=== PATIENT | female | born 1950 | race Two or more races ===

== ENCOUNTER 2024-08-28 15:52 | Emergency (ER) | payer MEDICARE, MEDICAID, SELFPAY ==
[2024-08-28 16:29] VITALS: BP 109/67; PULSE 92; RESP 17; TEMP 36.9; O2SAT 97
--- NOTE | 2024-08-28 16:37 | XR_ITS ---
Examination: PA lateral chest 2 views Technique: Upright PA lateral chest 2 views Exam date and time: August 28, 2024 1702 hrs. Indications: Coughing SOB today Findings: Comparison March 30, 2024 Moderate hyperexpansion Mild accentuation basilar bronchovascular markings Mild prominence left ventricle Scarring in the lingular segment Increased AP dimension chest on the lateral view No pneumonia or pulmonary edema Kyphosis dorsal spine with significant osteopenia Impression: COPD Mild basilar bronchitis
--- NOTE | 2024-08-28 16:38 | PD.EDRME ---
Rapid Medical Screening Exam [facility] Arrival date/time: 08/28/24 15:52 74-year-old female presents emergency department complaining of cough, runny nose, generalized bodyaches, headache, and fever for over 1 week. Patient reports has similar symptoms. Chief Complaint: Flu Like Symptoms Vital signs: Vital Signs Temperature 98.5 F 08/28/24 16:29 Pulse Rate 92 08/28/24 16:29 Respiratory Rate 17 08/28/24 16:29 Blood Pressure 109/67 08/28/24 16:29 Pulse Oximetry (%) 97 08/28/24 16:29 Oxygen Delivery Method Room Air 08/28/24 16:29 Vital signs reviewed by provider: Yes
--- NOTE | 2024-08-28 17:25 | PD.EDURI ---
Upper Respiratory Inf. RME/HPI General Chief Complaint: Flu Like Symptoms Stated Complaint: FEVER, COUGH, CONGESTION Time Seen by Provider: 08/28/24 16:38 Source: patient Arrival date/time: 08/28/24 15:52 74-year-old female presents emergency department complaining of cough, runny nose, generalized bodyaches, headache, and fever for over 1 week. Patient reports has similar symptoms. Mode of arrival: ambulatory Limitations: no limitations RME / HPI RME / HPI Narrative: 08/28/24 15:52 74-year-old female presents emergency department complaining of cough, runny nose, generalized bodyaches, headache, and fever for over 1 week. Patient reports has similar symptoms. Related Data Home Medications ?Medication ?Instructions ?Recorded ?Confirmed Levothyroxine * (SYNTHROID *) 100 mcg PO QDAY #0 tabs 05/06/17 03/11/22 Losartan Potassium * (COZAAR *) 50 mg PO QDAY #0 tabs 05/06/17 03/11/22 ferrous sulfate 325 mg (65 mg 325 mg PO BIDWM #0 tabs 05/06/17 03/11/22 iron) tablet (Feosol) hydroxychloroquine 200 mg tablet 200 mg PO DAILY #0 tabs 05/06/17 03/11/22 (Plaquenil) simvastatin 20 mg tablet (Zocor) 20 mg PO HS #0 tabs 05/06/17 03/11/22 aspirin 81 mg tablet,delayed 81 mg PO QDAY 03/10/22 03/10/22 release cholecalciferol (vitamin D3) 50 2,000 unit PO QDAY 03/10/22 03/11/22 mcg (2,000 unit) tablet (Vitamin D3) loratadine 10 mg tablet 10 mg PO QDAY 03/10/22 03/10/22 mycophenolate mofetil 500 mg tablet 500 mg PO BID 03/11/22 03/11/22 Previous Rx's ?Medication ?Instructions ?Recorded doxycycline hyclate 100 mg capsule 100 mg PO BID #14 caps 07/14/22 albuterol sulfate 90 mcg/actuation 2 puff inhalation QID PRN 08/16/22 aerosol inhaler shortness of breath or wheezing #8.5 grams azithromycin 250 mg tablet See Rx Instructions PO .COMPLEX #6 09/09/22 tabs albuterol sulfate 90 mcg/actuation 2 puff inhalation QID PRN 12/05/22 aerosol inhaler shortness of breath or wheezing #8.5 grams ciprofloxacin HCl 500 mg tablet 500 mg PO BID #14 tabs 03/30/24 (Cipro) ibuprofen 800 mg tablet 800 mg PO TID PRN pain #30 tabs 03/30/24 ibuprofen 600 mg tablet 600 mg PO Q8H PRN pain #20 tabs 08/28/24 Allergies Allergy/AdvReac Type Severity Reaction Status Date / Time Sulfa (Sulfonamide Allergy Intermediate RASH, HIVES Verified 03/30/24 11:48 Antibiotics) Review of Systems Review of Systems Systems Reviewed: All systems reviewed, normal except as documented Constitutional Constitutional: Reports system reviewed and no additional complaints, except as documented, Reports body ache(s), Denies chills, Reports fever(s) and Reports headache(s) Eyes Eyes: Reports system reviewed and no additional complaints, except as documented and Denies change in vision ENT Ears, Nose, Mouth, and Throat: Reports system reviewed and no additional complaints, except as documented, Denies disequilibrium, Denies dizziness, Reports headache(s), Reports nasal congestion, Denies sore throat and Denies vertigo Cardiovascular Cardiovascular: Reports system reviewed and no additional complaints, except as documented, Denies chest pain and Denies dyspnea Respiratory Respiratory: Reports system reviewed and no additional complaints, except as documented, Denies chest congestion, Reports cough and Denies dyspnea Gastrointestinal Gastrointestinal: Reports system reviewed and no additional complaints, except as documented, Denies abdominal pain, Denies nausea and Denies vomiting Musculoskeletal Musculoskeletal: Reports system reviewed and no additional complaints, except as documented, Denies abnormal gait and Denies arthralgias Integumentary/Breasts Skin/Breast: Reports system reviewed and no additional complaints, except as documented, Denies erythema, Denies rash and Denies wounds Neurologic Neurologic: Reports system reviewed and no additional complaints, except as documented, Denies abnormal gait, Denies disequilibrium, Denies dizziness, Reports headache(s) and Denies vertigo ED Exam General Limitations: Present no limitations General appearance: Present alert and in no apparent distress Head Head exam: Present atraumatic Eye Eye exam: Present normal appearance, PERRL and EOMI ENT ENT exam: Present normal exam, normal oropharynx and mucous membranes moist Neck Neck exam: Present normal inspection, full ROM and trachea midline Chest Chest inspection: Present normal inspection and symmetric chest wall rise Respiratory Respiratory exam: Present normal lung sounds bilaterally Cardiovascular Cardiovascular exam: Present regular rate, normal rhythm and normal heart sounds Abdominal Exam Abdominal exam: Present soft and normal bowel sounds Extremities Exam Extremities exam: Present normal inspection and full ROM Back Exam Back exam: Present normal inspection and full ROM Neurological Exam Neurological exam: Present alert, oriented X3 and CN II-XII intact Psychiatric Psychiatric exam: Present normal affect and normal mood Skin Skin exam: Present warm, dry, intact and normal color Course Quality Measures none Orders Category Date Time Status Bedside COVID-19 Antigen Test NOW Care 08/28/24 16:37 Completed Bedside Influenza A&B Antigen Test NOW Care 08/28/24 16:37 Completed XR chest 2V Stat Exams 08/28/24 16:37 Completed Vital Signs Vital signs: Vital Signs Temperature 98.5 F 08/28/24 16:29 Pulse Rate 92 08/28/24 16:29 Respiratory Rate 17 08/28/24 16:29 Blood Pressure 109/67 08/28/24 16:29 Pulse Oximetry (%) 97 08/28/24 16:29 Oxygen Delivery Method Room Air 08/28/24 16:29 97% RA WNL. Upper Respiratory Infection MDM Narrative MDM Narrative:: 74-year-old female presents emergency department complaining of cough, runny nose, generalized bodyaches, headache, and fever for over 1 week. Patient reports has similar symptoms. Patient no adventitious lung sounds on auscultation. Patient appears non toxic and hemodynamically stable. Chest XR negative for pneumonia but bronchitis pattern. Patient 97% RA with no tachypnea speaking in full sentences. COVID and Influenza negative. Likely viral infection. Instructed follow up with primary doctor and return ER for any worsening symptoms. Patient data External records reviewed:: [facility] previous records Clinical information provided by:: patient Social determinants that could affect healthcare access:: none Patient has the following chronic illnesses:: see chart How is presenting disease/condition affected by chronic disease/condition?: uneffected by Evaluation data The following diagnostics were reviewed and interpreted by me:: lab results and radiology exam(s) Lab and/or radiology exams considered but not ordered:: ordered Interpretation Summary: interpreted by me Medications / Prescriptions Medications or Prescriptions considered but not ordered:: n/a Medication administrations:: n/a Consultations Consultation(s) initiated? (list below): No Diagnosis Upper Respiratory Differential Diagnosis: upper respiratory infection, viral infection and bronchitis Most likely diagnosis given after review of the tests above:: bronchitis Admission Indicated Admission indicated?: not indicated Admission Request Was there a request for admission?: No Disposition Plan Disposition Plan: Discharge Discharge Attestation Discharge Attestation: The patient and all family members were given an opportunity to ask questions and understood the discharge instructions. Discharge instructions specifically effects, indications for sooner follow up or return to the emergency department, and the expected course of current diagnosis. Patient condition: Stable Discharge Plan Plan Patient Disposition: HOME (Self Care) Disposition Comment: Stable Prescriptions/Referrals Prescriptions/Med Rec: New ibuprofen 600 mg tablet 600 mg PO Q8H PRN (Reason: pain) Qty: 20 0RF No Action simvastatin [Zocor] 20 MG tablet 20 mg PO HS Qty: 0 ferrous sulfate [Feosol] 1 TAB tablet 325 mg PO BIDWM Qty: 0 hydroxychloroquine [Plaquenil] 200 MG tablet 200 mg PO DAILY Qty: 0 Levothyroxine * (SYNTHROID *) 100 mcg tablet 100 mcg PO QDAY Qty: 0 Losartan Potassium * (COZAAR *) 50 MG tablet 50 mg PO QDAY Qty: 0 aspirin 81 mg Tablet,Delayed Release (Dr/Ec) 81 mg PO QDAY loratadine 10 mg Tablet 10 mg PO QDAY cholecalciferol (vitamin D3) [Vitamin D3] 50 mcg (2,000 unit) Tablet 2,000 unit PO QDAY mycophenolate mofetil 500 mg Tablet 500 mg PO BID azithromycin 250 mg tablet See Rx Instructions .ROUTE .COMPLEX Qty: 6 0RF Rx Instructions: For 250 mg dose pack: take 500 mg today (day 1), then 250 mg for 4 days (days 2-5) ciprofloxacin HCl [Cipro] 500 mg tablet 500 mg PO BID Qty: 14 0RF ibuprofen 800 mg tablet 800 mg PO TID PRN (Reason: pain) Qty: 30 0RF doxycycline hyclate 100 mg capsule 100 mg PO BID Qty: 14 0RF albuterol sulfate 90 mcg/actuation HFA aerosol inhaler 2 puff inhalation QID PRN (Reason: shortness of breath or wheezing) Qty: 8.5 0RF albuterol sulfate 90 mcg/actuation HFA aerosol inhaler 2 puff inhalation QID PRN (Reason: shortness of breath or wheezing) Qty: 8.5 0RF Referrals: Domingo Tomlinson MD [Primary Care Provider] - In 1 week Problem List Clinical Impression: Bronchitis Patient/Caregiver Discharge Instructions Discharge Activity: activity as tolerated Education Materials: ED Bronchitis, No Antibiotic (Adult) Additional Instructions: Drink plenty of fluids and stay hydrated. Take ibuprofen or Tylenol as needed for pain. Follow-up with primary care provider in 24 to 40 hours. Return to emergency department for any worsening symptoms or as needed. Print Language: Icelandic Stand Alone Forms: [employer] Award Info., Patient Portal Info Letter PA/COMMERCIAL BAKER HELPER Supervising Physician PA/COMMERCIAL BAKER HELPER Supervising Physician: Dr. Martinez
== END 2024-08-28 17:30 | disposition home or self-care (01) ==
PROVIDERS: Emergency Provider Emergency Medicine; PCP Family Medicine
DX: J40 Bronchitis, not specified as acute or chronic (principal)
CPT/HCPCS: 71046; 87400; 87811; 99283

== ENCOUNTER 2024-10-08 09:07 | Emergency (ER) | payer MEDICARE, MEDICAID, SELFPAY ==
[2024-10-08 09:17] VITALS: BP 125/78; PULSE 72; RESP 17; TEMP 36.5; O2SAT 98; BMI 27.1
--- NOTE | 2024-10-08 09:33 | XR_ITS ---
Examination: CT thoracic spine, without contrast. 2-D sagittal reconstructions. 2-D coronal reconstructions. 3-D reconstructions. Date and time of exam:10/08/2024 at 0957 hrs. Indications: Left upper back pain beginning 2 days ago CTDI: vol (mGy):18 DLP: (mGycm):593 Technique: Multiple 1.25 mm axial sections of the thoracic spine without intravenous contrast have been obtained. 2-D sagittal and coronal reconstructions have been obtained. 3-D reconstructions have been obtained. Low dose protocols were performed. One or more of the following dose reduction techniques were used; automated exposure control, adjustment of the mA and/or KV according to patient size, use of iterative reconstruction technique. Findings: Prominent osteopenia Kyphosis dorsal spine, mild Mild to moderate compression fracture T7 which appears subacute The pedicles at this level are intact No focal soft tissue disc protrusion Impression: Prominent osteopenia Mild to moderate compression fracture T7 which appears subacute, MRI thoracic spine without contrast follow-up would best assess for marrow edema involving this vertebral body and assess for soft tissue acquired spinal stenosis
--- NOTE | 2024-10-08 09:33 | XR_ITS ---
Examination: CT cervical spine without contrast 2-D sagittal reconstructions 2-D coronal reconstructions 3-D reconstructions. Exam date and time:October 08, 2024 0953 hrs. Indications: Left neck pain beginning 2 days ago CTDI:vol (mGy) 7.82 DLP: (mGycm) 167 Technique: Multiple 2 mm axial sections of the cervical spine have been obtained. The coronal and sagittal reconstructions have been obtained. 3-D reconstructions have been obtained. Low dose protocols were performed. One or more of the following dose reduction techniques were used; automated exposure control, adjustment of the mA and/or KV according to patient size, use of iterative reconstruction technique. Findings: Axial sections demonstrate intact base of the skull. Minimal anterolisthesis C5 on C6 Mild disc narrowing C6-C7 C1 exhibit satisfactory relationship to the odontoid. No acute cervical vertebral body fracture seen. Alignment posterior spinous processes satisfactory. Impression: No acute cervical fracture. Early degenerative disc disease C6-C7 Consider MRI cervical spine without contrast follow-up to best assess for acquired soft tissue spinal stenosis
--- NOTE | 2024-10-08 09:33 | XR_ITS ---
Examination: CT brain head without contrast. 2-D sagittal coronal reconstructions Date and time of exam:October 08, 2024 at 0935 hrs. Indications: Onset left-sided headaches beginning 2 days ago CTDI: vol (mGy):49 DLP: (mGycm):1017 Technique: Multiple CT axial sections of the brain have been obtained, 5 mm slice thickness. Contrast has not been administered. 2-D sagittal, coronal reconstructions have been obtained Low dose protocols were performed. One or more of the following dose reduction techniques were used; automated exposure control, adjustment of the mA and/or KV according to patient size, use of iterative reconstruction technique. Findings: No significant ventricular enlargement. Intra-axial or extra-axial hemorrhage density is not seen. No mass effect or midline shift Basal cisterns are not remarkable. Fourth ventricle is midline. Cranial vault intact. Impression: Negative for acute hemorrhage, mass effect or midline shift Advise clinical correlation and follow-up accordingly
--- NOTE | 2024-10-08 09:34 | PD.EDRME ---
Rapid Medical Screening Exam [facility]ME Arrival date/time: 10/08/24 09:07 74-year-old female presents emergency department complaints of head pain, neck pain, back pain worse with movement patient also reports some dizziness Chief Complaint: Neck Pain/Injury Time Seen by Provider: 10/08/24 09:18 Vital signs: Vital Signs Temperature 97.7 F 10/08/24 09:17 Pulse Rate 72 10/08/24 09:17 Respiratory Rate 17 10/08/24 09:17 Blood Pressure 125/78 10/08/24 09:17 Pulse Oximetry (%) 98 10/08/24 09:17 Oxygen Delivery Method Room Air 10/08/24 09:17
[2024-10-08 10:52] LABS: Collection Type, Urine Clean Catch
[2024-10-08 11:03] LABS: Basophils % (Auto) 0 % (0-2.5); Eosinophils # (Auto) 0.1 Thou/mm3 (0.0-0.5); Eosinophils % (Auto) 1 % (0-10); Hematocrit 36.8 % (36.0-46.0); Hemoglobin 11.6 g/dL (12.0-16.0); Immature Granulocytes % (Auto) 0 % (0-0); Immature Granulocytes Auto 0.01 Thou/mm3 (0.00-0.00); Lymphocytes % (Auto) 11 % (10-50); Mean Corpuscular HGB Conc 31.5 g/dl (31.0-37.0); Mean Corpuscular Hemoglobin 26.8 pg (25.0-35.0); Mean Corpuscular Volume 85 fL (80-100); Monocytes # (Auto) 0.5 Thou/mm3 (0.0-0.8); Monocytes % (Auto) 6 % (0-12); Neutrophils # (Auto) 7.8 Thou/mm3 (1.8-7.7); Neutrophils % (Auto) 82 % (37-80); Nucleated Red Blood Cell % 0 /100 WBC (0); Platelet Count 164 Thou/mm3 (140-440); RDW Standard Deviation 41.6 fL (36.4-46.3); Red Blood Count 4.33 Miln/mm3 (4.00-5.20); White Blood Count 9.5 Thou/mm3 (3.6-11.0)
[2024-10-08 11:07] LABS: Bilirubin,Urine Negative (Negative); Blood,Urine Negative (Negative); Clarity,Urine Clear (Clear/Hazy); Color,Urine Lt-Yellow (Lt Yel-Yel); Glucose, Urine Negative (Negative); Hyaline Casts,Urine < 1 /hpf (0-1); Ketones,Urine Negative (Negative); Leukocyte Esterase,Urine Positive (Negative); Nitrite,Urine Negative (Negative); Protein,Urine 1+ (Neg - Trace); RBC,Urine 2 /hpf (0-3); Specific Gravity,Urine 1.015 (1.001-1.035); Squamous Epithelial Cell,Urine < 1 /hpf (0-5); Urobilinogen,Urine Negative mg/dL (0.0-1.0); WBC,Urine 14 /hpf (0-5)
[2024-10-08 11:08] LABS: Alanine Aminotransferase 12 U/L (10-49); Albumin, Serum 4.5 gm/dL (3.4-4.8); Albumin/Globulin Ratio 1.7 (1.2-2.2); Alkaline Phosphatase 51 U/L (46-116); Anion Gap 6 (7-16); Aspartate Amino Transferase 13 U/L (0-34); BUN/Creatinine Ratio 21 Ratio (12-20); Bilirubin,Total 0.5 mg/dL (0.3-1.2); Blood Urea Nitrogen 17 mg/dL (9-23); Calcium 9.8 mg/dL (8.3-10.6); Calcium (Corrected) 9.8 mg/dL (8.5-10.1); Carbon Dioxide 28.2 mMol/L (20.0-31.0); Chloride 106 mMol/L (98-107); Creatinine (Component) 0.8 mg/dL (0.6-1.3); Estimated Creatinine Clearance 52.6 mL/min (>60); Globulin 2.7 gm/dL (2.3-3.5); Glucose 89 mg/dL (74-106); Lipase 43 U/L (12-53); Osmolality,Calculated 279 (275-295); Potassium 4.4 mMol/L (3.4-5.1); Sodium 140 mMol/L (136-145); Total Protein 7.2 gm/dL (5.7-8.2); Troponin I < 0.020 ng/mL (0.0-0.045); eGFR > 60 See Note
[2024-10-08 11:23] LABS: Culture Indicated,Urine Yes; HCG Qualitative,Urine Negative
--- NOTE | 2024-10-08 12:13 | EDNOTE_ITS ---
ED Neck Injury Pain RME/HPI General Chief Complaint: Neck Pain/Injury Stated Complaint: LEFT SIDED NECK PAIN W/MOVEMENT Time Seen by Provider: 10/08/24 09:18 Arrival date/time: 10/08/24 09:07 RME / HPI RME / HPI Narrative: 74-year-old female patient with significant history of osteoporosis in the past, came in for evaluation regarding posterior neck pain, upper back pain, headache, dizziness, has been ongoing for several days. Patient pain is worse with range of motion of the neck. Patient denies any fall denies any fever denies any upper or lower extremity weakness patient is ambulatory. Denies any vomiting. No medication was taken prior to arrival Related Data Home Medications ?Medication ?Instructions ?Recorded ?Confirmed Levothyroxine * (SYNTHROID *) 100 mcg PO QDAY #0 tabs 05/06/17 03/11/22 Losartan Potassium * (COZAAR *) 50 mg PO QDAY #0 tabs 05/06/17 03/11/22 ferrous sulfate 325 mg (65 mg 325 mg PO BIDWM #0 tabs 05/06/17 03/11/22 iron) tablet (Feosol) hydroxychloroquine 200 mg tablet 200 mg PO DAILY #0 tabs 05/06/17 03/11/22 (Plaquenil) simvastatin 20 mg tablet (Zocor) 20 mg PO HS #0 tabs 05/06/17 03/11/22 aspirin 81 mg tablet,delayed 81 mg PO QDAY 03/10/22 03/10/22 release cholecalciferol (vitamin D3) 50 2,000 unit PO QDAY 03/10/22 03/11/22 mcg (2,000 unit) tablet (Vitamin D3) loratadine 10 mg tablet 10 mg PO QDAY 03/10/22 03/10/22 mycophenolate mofetil 500 mg tablet 500 mg PO BID 03/11/22 03/11/22 Previous Rx's ?Medication ?Instructions ?Recorded doxycycline hyclate 100 mg capsule 100 mg PO BID #14 caps 07/14/22 albuterol sulfate 90 mcg/actuation 2 puff inhalation QID PRN 08/16/22 aerosol inhaler shortness of breath or wheezing #8.5 grams azithromycin 250 mg tablet See Rx Instructions PO .COMPLEX #6 09/09/22 tabs albuterol sulfate 90 mcg/actuation 2 puff inhalation QID PRN 12/05/22 aerosol inhaler shortness of breath or wheezing #8.5 grams ciprofloxacin HCl 500 mg tablet 500 mg PO BID #14 tabs 03/30/24 (Cipro) ibuprofen 800 mg tablet 800 mg PO TID PRN pain #30 tabs 03/30/24 ibuprofen 600 mg tablet 600 mg PO Q8H PRN pain #20 tabs 08/28/24 cefuroxime axetil 500 mg tablet 500 mg PO BID #14 tabs 10/08/24 tramadol 37.5 mg-acetaminophen 325 1 tab PO TID PRN pain #20 tabs 10/08/24 mg tablet Allergies Allergy/AdvReac Type Severity Reaction Status Date / Time Sulfa (Sulfonamide Allergy Intermediate RASH, HIVES Verified 10/08/24 09:10 Antibiotics) Review of Systems Review of Systems Narrative Review of Systems: Review of system reviewed and within normal limits except mentioned in HPI ED Exam Narrative Physical exam: VITAL SIGNS: Reviewed. GENERAL APPEARANCE: Alert and interactive, follows commands, no acute distress, HEAD AND FACE: Non-traumatic. ENT: PERRL, pink conjunctivitis, eyelid no trauma, Mucous membrane moist. NECK: Supple, posterior neck tenderness, no nuchal rigidity. CHEST: No tenderness, no crepitus, no paradoxical movement, no retractions. LUNGS: Clear, well ventilated, symmetric, no rales, no wheezing, no ronchi, no stridor, good breath sounds bilaterally. HEART: Regular rate, regular rhythm, no murmur, no gallops. ABDOMEN: Soft, positive bowel sounds, nondistended, no guarding, nontender, no rebound, no masses, RECTAL: Deferred. GENITAL: Deferred. NEUROLOGICAL: Gross motor function intact sensory function intact, Appropriate for age. MUSCULOSKELETAL: Upper back tenderness, full range of motion. EXTREMITIES: Nontender, full range of motion. SKIN: Color pink, dry, no rash, no lacerations, no abrasions, no contusions. LYMPHATICS: Deferred. Course Quality Measures none Orders Category Date Time Status CT cervical spine wo con Stat Exams 10/08/24 09:[address] head/brain wo con Stat Exams 10/08/24 09:[address] thoracic spine wo con Stat Exams 10/08/24 09:33 Completed CBC Stat Lab 12/21/24 10:25 Completed Comprehensive Metabolic Panel Stat Lab 10/08/24 10:25 Completed HCG Qualitative,Urine Stat Lab 10/08/24 10:28 Completed Lipase Stat Lab 10/08/24 10:25 Completed Troponin I Stat Lab 10/08/24 10:25 Completed UA, C/S IF [Urinalysis, C/S if Indicated] Stat Lab 10/08/24 10:28 Completed Urine Culture Stat Lab 10/08/24 10:28 Received Vital Signs Vital signs: Vital Signs Temperature 97.7 F 10/08/24 09:17 Pulse Rate 72 10/08/24 09:17 Respiratory Rate 17 10/08/24 09:17 Blood Pressure 125/78 10/08/24 09:17 Pulse Oximetry (%) 98 10/08/24 09:17 Oxygen Delivery Method Room Air 10/08/24 09:17 Neck Pain MDM Narrative MDM Narrative:: 74-year-old female patient with significant history of osteoporosis in the past, came in for evaluation regarding posterior neck pain, upper back pain, headache, dizziness, has been ongoing for several days. Patient pain is worse with range of motion of the neck. Patient denies any fall denies any fever denies any upper or lower extremity weakness patient is ambulatory. Denies any vomiting. No medication was taken prior to arrival Patient's workup is significant for UTI otherwise unremarkable. CT scan of the head came back unremarkable. CT scan of the neck showed degenerative changes in the cervical spine. CT scan of the thoracic spine showed subacute/chronic compression fractures at T7, osteoporosis noted also. Results discussed with the family. Patient was advised to increase calcium in the diet, increase weightbearing exercises, and avoid fall. Patient was also sent home on pain medication and antibiotic for UTI. Plan of care discussed with them and agrees. Patient was advised to closely follow-up with PCP and for referral to spine surgeon regarding neck pain. And compression fracture. Patient data External records reviewed:: None Clinical information provided by:: patient Social determinants that could affect healthcare access:: none Patient has the following chronic illnesses:: Osteoporosis hypothyroidism hypertension How is presenting disease/condition affected by chronic disease/condition?: e xacerbated by Evaluation data The following diagnostics were reviewed and interpreted by me:: lab results and radiology exam(s) Lab and/or radiology exams considered but not ordered:: None Interpretation Summary: Patient's workup is significant for UTI otherwise unremarkable. CT scan of the head came back unremarkable. CT scan of the neck showed degenerative changes in the cervical spine. CT scan of the thoracic spine showed subacute/chronic compression fractures at T7, osteoporosis noted also Medications / Prescriptions Medications or Prescriptions considered but not ordered:: None Medication administrations:: None Consultations Consultation(s) initiated? (list below): No Diagnosis Neck Differential Diagnosis: cervical radiculopathy, cervical spondylosis and other (Compression fracture T7, UTI, osteoporosis) Most likely diagnosis given after review of the tests above:: Cervical arthritis, neck pain, compression fracture T7, UTI Admission Indicated Admission indicated?: not indicated Explain why admission is indicated or not indicated:: Stable Admission Request Was there a request for admission?: No Disposition Plan Disposition Plan: Discharge Discharge Attestation Discharge Attestation: The patient and all family members were given an opportunity to ask questions and understood the discharge instructions. Discharge instructions specifically effects, indications for sooner follow up or return to the emergency department, and the expected course of current diagnosis. Patient condition: Stable Discharge Plan Plan Patient Disposition: HOME (Self Care) Disposition Comment: stable Prescriptions/Referrals Prescriptions/Med Rec: New cefuroxime axetil 500 mg tablet 500 mg PO BID Qty: 14 0RF tramadol-acetaminophen 37.5-325 mg tablet 1 tab PO TID PRN (Reason: pain) Qty: 20 0RF No Action simvastatin [Zocor] 20 MG tablet 20 mg PO HS Qty: 0 ferrous sulfate [Feosol] 1 TAB tablet 325 mg PO BIDWM Qty: 0 hydroxychloroquine [Plaquenil] 200 MG tablet 200 mg PO DAILY Qty: 0 Levothyroxine * (SYNTHROID *) 100 mcg tablet 100 mcg PO QDAY Qty: 0 Losartan Potassium * (COZAAR *) 50 MG tablet 50 mg PO QDAY Qty: 0 aspirin 81 mg Tablet,Delayed Release (Dr/Ec) 81 mg PO QDAY loratadine 10 mg Tablet 10 mg PO QDAY cholecalciferol (vitamin D3) [Vitamin D3] 50 mcg (2,000 unit) Tablet 2,000 unit PO QDAY mycophenolate mofetil 500 mg Tablet 500 mg PO BID azithromycin 250 mg tablet See Rx Instructions .ROUTE .COMPLEX Qty: 6 0RF Rx Instructions: For 250 mg dose pack: take 500 mg today (day 1), then 250 mg for 4 days (days 2-5) ciprofloxacin HCl [Cipro] 500 mg tablet 500 mg PO BID Qty: 14 0RF ibuprofen 800 mg tablet 800 mg PO TID PRN (Reason: pain) Qty: 30 0RF doxycycline hyclate 100 mg capsule 100 mg PO BID Qty: 14 0RF albuterol sulfate 90 mcg/actuation HFA aerosol inhaler 2 puff inhalation QID PRN (Reason: shortness of breath or wheezing) Qty: 8.5 0RF albuterol sulfate 90 mcg/actuation HFA aerosol inhaler 2 puff inhalation QID PRN (Reason: shortness of breath or wheezing) Qty: 8.5 0RF ibuprofen 600 mg tablet 600 mg PO Q8H PRN (Reason: pain) Qty: 20 0RF Referrals: Domingo Tomlinson MD [Primary Care Provider] - In 1 week Problem List Clinical Impression: Neck arthralgia, Cervical arthritis, Compression fracture of thoracic spine, non-traumatic, UTI (urinary tract infection), Osteoporosis Patient/Caregiver Discharge Instructions Discharge Activity: activity as tolerated Education Materials: Osteoporosis Exercise, Back Basics: A Healthy Spine Additional Instructions: Thank you for the opportunity for serving you today. You are stable for discharged . You are advised to: Follow-up with your PCP in 1 to 2 days Return to ED for worsening of symptoms Increase oral fluids Take medication as prescribed Increase calcium in your diet Print Language: Tristanian Stand Alone Forms: Ivis Award Info., Patient Portal Info Letter PA/LILLIE Supervising Physician JOE/LILLIE Supervising Physician: MD Lianna
== END 2024-10-08 12:39 | disposition home or self-care (01) ==
PROVIDERS: Nurse Practitioner Primary Care; Emergency Provider Emergency Medicine; PCP Family Medicine
DX: M47.812 Spondylosis without myelopathy or radiculopathy, cervical region (principal); M80.08XA Age-related osteoporosis with current pathological fracture, vertebra(e), initial encounter for fracture; N39.0 Urinary tract infection, site not specified; R51.9 Headache, unspecified
CPT/HCPCS: 36415; 70450; 72125; 72128; 80053; 81001; 81025; 83690; 84484; 85025; 87086; 99284

== ENCOUNTER 2024-12-15 06:50 | Day surgery (SDC) | payer MEDICARE, MEDICAID, SELFPAY ==
[2024-12-15] VITALS (11 sets, daily range): BP systolic 109–151; BP diastolic 66–85; PULSE 65–77; RESP 13–20; TEMP 36.2–36.6; O2SAT 97–100; BMI 26.3
[2024-12-15] MEDS: SODIUM CHLORIDE 0.9% 500 ML 500 ML 20 ML IV (07:25)
[2024-12-15] MEDS: fentaNYL CIT INJ 50 mCg/ML AMP 2ML (ASD USE ONLY) IV (07:27)
[2024-12-15] MEDS: DiphenhydrAMINE INJ 50 MG/ML VIAL 25 MG IV (07:27)
[2024-12-15] MEDS: MIDAZOLAM INJ 1 MG/ML VIAL 2 ML (ASD USE ONLY) 2 MG IV (07:31)
== END 2024-12-15 08:50 | disposition home or self-care (01) ==
PROVIDERS: PCP Family Medicine; Referring Provider Surgery; Visit Provider Surgery
PROC: 0DBE8ZX Excision of Large Intestine, Via Natural or Artificial Opening Endoscopic, Diagnostic (ICD-10-PCS; CPT 45380; principal; 2024-12-15 08:00)
DX: K62.89 Other specified diseases of anus and rectum (principal); Z86.0100 Personal history of colon polyps, unspecified; K64.1 Second degree hemorrhoids; K64.4 Residual hemorrhoidal skin tags; K57.30 Diverticulosis of large intestine without perforation or abscess without bleeding
CPT/HCPCS: 45378; J1200; J2250; J3010; J7040

== ENCOUNTER 2025-03-20 18:10 | Emergency (ER) | payer MEDICARE, MEDICAID, SELFPAY ==
[2025-03-20 18:31] VITALS: BP 147/78; PULSE 76; RESP 18; TEMP 37.2; O2SAT 96; BMI 29.1
--- NOTE | 2025-03-20 18:48 | PD.EDNECK ---
ED Neck Injury Pain RME/HPI General Chief Complaint: Neck Pain/Injury Stated Complaint: BACK OF NECK PAIN X YESTERDAY Time Seen by Provider: 03/20/25 18:42 Source: patient Arrival date/time: 03/20/25 18:10 Mode of arrival: ambulatory Limitations: no limitations RME / HPI RME / HPI Narrative: 74-year-old female presents to the ED with a complaint of neck pain that began spontaneously yesterday at. In the afternoon. Denies trauma. Denies numbness or tingling to both her upper extremities as well as her hands. Patient also complains of being dizzy and feeling lightheaded. MD complaint: neck pain and neck injury (Denies recent history of n neck trauma) Onset (ago): day(s) (Her neck pain began yesterday at 1500) Place: other ([facility]?) Related Data Home Medications ?Medication ?Instructions ?Recorded ?Confirmed Levothyroxine * (SYNTHROID *) 100 mcg PO QDAY #0 tabs 05/06/17 12/15/24 Losartan Potassium * (COZAAR *) 50 mg PO QDAY #0 tabs 05/06/17 12/15/24 ferrous sulfate 325 mg (65 mg 325 mg PO BIDWM #0 tabs 05/06/17 12/15/24 iron) tablet (Feosol) hydroxychloroquine 200 mg tablet 200 mg PO DAILY #0 tabs 05/06/17 12/15/24 (Plaquenil) simvastatin 20 mg tablet (Zocor) 20 mg PO HS #0 tabs 05/06/17 12/15/24 mycophenolate mofetil 500 mg tablet 500 mg PO BID 03/11/22 12/15/24 cholecalciferol (vitamin D3) 50 50 mcg PO DAILY 12/15/24 12/15/24 mcg (2,000 unit) capsule Allergies Allergy/AdvReac Type Severity Reaction Status Date / Time Sulfa (Sulfonamide Allergy Intermediate RASH, HIVES Verified 03/20/25 18:13 Antibiotics) Review of Systems Constitutional Constitutional: Reports system reviewed and no additional complaints, except as documented Eyes Eyes: Reports system reviewed and no additional complaints, except as documented, Denies dry eyes, Denies exophthalmos and Reports floaters Cardiovascular Cardiovascular: Denies chest pain with activity and Denies claudication ED Exam Narrative Physical exam: Patient has tenderness to palpation at the nape of the neck. She has decreased range of motion secondary to subjective pain. Her neck is not midline. 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 There is no apparent trauma and there is no bony deformity. General Limitations: Present no limitations General appearance: Present alert and in no apparent distress Head Head exam: Present atraumatic Eye Eye exam: Present normal appearance and EOMI ENT ENT exam: Present normal exam, normal oropharynx and mucous membranes moist Neck Neck exam: Present normal inspection, full ROM and trachea midline Chest Chest inspection: Present normal inspection and symmetric chest wall rise Respiratory Respiratory exam: Present normal lung sounds bilaterally Extremities Exam Extremities exam: Present normal inspection and full ROM Back Exam Back exam: Present normal inspection and full ROM Neurological Exam Neurological exam: Present alert and oriented X3 Psychiatric Psychiatric exam: Present normal affect and normal mood Skin Skin exam: Present warm, dry, intact and normal color Course Course Course Narrative: Patient will have a C-spine of her neck. I will also do a CBC, CMP, UA as she mentions that she is dizzy. Quality Measures none Orders Category Date Time Status XR cervical spine 2-3V Stat Exams 03/20/25 18:54 Completed CBC Stat Lab 03/20/25 19:25 Completed CMP [Comprehensive Metabolic Panel] Stat Lab 03/20/25 19:25 Completed UA [Urinalysis] Stat Lab 03/20/25 19:18 Completed Completed Vital Signs Vital signs: Vital Signs Temperature 98.9 F 03/20/25 18:31 Pulse Rate 76 03/20/25 18:31 Respiratory Rate 18 03/20/25 18:31 Blood Pressure 147/78 H 03/20/25 18:31 Pulse Oximetry (%) 96 03/20/25 18:31 Oxygen Delivery Method Room Air 03/20/25 18:31 Pulse ox room air is 96% Neck Pain MDM Narrative MDM Narrative:: Patient will be informed of the early degenerative joint disease of her neck. And she will also be informed of her blood work. Patient will be discharged in no apparent distress to follow-up with primary care physician in 1 week. Patient data External records reviewed:: Other (specify) Clinical information provided by:: none Social determinants that could affect healthcare access:: none Patient has the following chronic illnesses:: Diverticulitis, thyroid How is presenting disease/condition affected by chronic disease/condition?: exacerbated by (Movement) Evaluation data The following diagnostics were reviewed and interpreted by me:: lab results and radiology exam(s) Lab and/or radiology exams considered but not ordered:: Radiology results demonstrates degenerative joint disease of the cervical spine. Lab results are roughly within her normal limits and the patient should be followed by primary care physician Interpretation Summary: N/A Medications / Prescriptions Medications or Prescriptions considered but not ordered:: N/A Medication administrations:: N/A Consultations Consultation(s) initiated? (list below): No Consultation #1 (Physician, Specialty, Details): N/A Diagnosis Neck Differential Diagnosis: disc disorder of cervical region, whiplash injury to neck, closed subluxation of cervical spine and fracture of cervical spine without lesion of spinal cord Most likely diagnosis given after review of the tests above:: Degenerative joint disease of the neck/cervical spine Admission Indicated Admission indicated?: not indicated Admission Request Was there a request for admission?: No Disposition Plan Disposition Plan: Discharge Discharge Attestation Discharge Attestation: The patient and all family members were given an opportunity to ask questions and understood the discharge instructions. Discharge instructions specifically effects, indications for sooner follow up or return to the emergency department, and the expected course of current diagnosis. Patient condition: Stable Discharge Plan Plan Patient Disposition: HOME (Self Care) Discharge Disposition comment: Discharge no apparent distress Patient condition on transfer: Stable Prescriptions/Referrals Prescriptions/Med Rec: No Action simvastatin [Zocor] 20 MG tablet 20 mg PO HS Qty: 0 ferrous sulfate [Feosol] 1 TAB tablet 325 mg PO BIDWM Qty: 0 hydroxychloroquine [Plaquenil] 200 MG tablet 200 mg PO DAILY Qty: 0 Levothyroxine * (SYNTHROID *) 100 mcg tablet 100 mcg PO QDAY Qty: 0 Losartan Potassium * (COZAAR *) 50 MG tablet 50 mg PO QDAY Qty: 0 mycophenolate mofetil 500 mg Tablet 500 mg PO BID cholecalciferol (vitamin D3) 50 mcg (2,000 unit) capsule 50 mcg PO DAILY Patient Comments: TOME NEIL [place] [facility] Referrals: Domingo Tomlinson MD [Primary Care Provider] - In 1 week Problem List Clinical Impression: Degenerative joint disease Patient/Caregiver Discharge Instructions Discharge Activity: activity as tolerated Print Language: [place] Citizen Stand Alone Forms: Ivis Award Info., Patient Portal Info Letter PA/HEALTHCARE CONSULTANT Supervising Physician JOE/HEALTHCARE CONSULTANT Supervising Physician: Devang
--- NOTE | 2025-03-20 18:54 | XR_ITS ---
Examination: Cervical spine 3 views Technique one AP lateral, and AP odontoid cervical spine 3 views Date and time: March 20, 2025 1911 hours INDICATIONS: Neck pain beginning one month ago. FINDINGS: Minimal 1 mm anterolisthesis C5 on C6 Mild disc narrowing C5-C6, C6-C7 No cervical fracture Intact odontoid IMPRESSION: Early degenerative disc disease C5-C6 and C6-C7.
[2025-03-20 19:32] LABS: Collection Type, Urine Clean Catch
[2025-03-20 19:36] LABS: Basophils % (Auto) 1 % (0-2.5); Eosinophils # (Auto) 0.1 Thou/mm3 (0.0-0.5); Eosinophils % (Auto) 2 % (0-10); Hematocrit 35.3 % (36.0-46.0); Immature Granulocytes % (Auto) 0 % (0-0); Immature Granulocytes Auto 0.01 Thou/mm3 (0.00-0.00); Lymphocytes # (Auto) 1.8 Thou/mm3 (1.0-4.8); Lymphocytes % (Auto) 22 % (10-50); Mean Corpuscular HGB Conc 31.2 g/dl (31.0-37.0); Mean Corpuscular Hemoglobin 26.6 pg (25.0-35.0); Mean Corpuscular Volume 86 fL (80-100); Monocytes # (Auto) 0.6 Thou/mm3 (0.0-0.8); Monocytes % (Auto) 7 % (0-12); Neutrophils # (Auto) 5.8 Thou/mm3 (1.8-7.7); Neutrophils % (Auto) 70 % (37-80); Nucleated Red Blood Cell % 0 /100 WBC (0); Platelet Count 155 Thou/mm3 (140-440); RDW Standard Deviation 41.1 fL (36.4-46.3); Red Blood Count 4.13 Miln/mm3 (4.00-5.20); White Blood Count 8.4 Thou/mm3 (3.6-11.0)
[2025-03-20 19:43] LABS: Bilirubin,Urine Negative (Negative); Blood,Urine Negative (Negative); Clarity,Urine Clear (Clear/Hazy); Color,Urine Lt-Yellow (Lt Yel-Yel); Glucose, Urine Negative (Negative); Ketones,Urine Negative (Negative); Leukocyte Esterase,Urine Positive (Negative); Nitrite,Urine Negative (Negative); Protein,Urine Trace (Neg - Trace); RBC,Urine < 1 /hpf (0-3); Specific Gravity,Urine 1.019 (1.001-1.035); Squamous Epithelial Cell,Urine 2 /hpf (0-5); Urobilinogen,Urine Negative mg/dL (0.0-1.0); WBC,Urine 1 /hpf (0-5)
[2025-03-20 19:55] LABS: Alanine Aminotransferase 14 U/L (10-49); Albumin, Serum 4.4 gm/dL (3.4-4.8); Albumin/Globulin Ratio 1.8 (1.2-2.2); Alkaline Phosphatase 42 U/L (46-116); Anion Gap 11 (7-16); Aspartate Amino Transferase 23 U/L (0-34); BUN/Creatinine Ratio 22 Ratio (12-20); Bilirubin,Total 0.4 mg/dL (0.3-1.2); Blood Urea Nitrogen 26 mg/dL (9-23); Calcium 10.1 mg/dL (8.3-10.6); Calcium (Corrected) 10.1 mg/dL (8.5-10.1); Chloride 103 mMol/L (98-107); Creatinine (Component) 1.2 mg/dL (0.6-1.3); Estimated Creatinine Clearance 34.8 mL/min (>60); Globulin 2.5 gm/dL (2.3-3.5); Glucose 90 mg/dL (74-106); Osmolality,Calculated 282 (275-295); Potassium 3.9 mMol/L (3.4-5.1); Sodium 139 mMol/L (136-145); Total Protein 6.9 gm/dL (5.7-8.2); eGFR 47 See Note
== END 2025-03-20 21:08 | disposition home or self-care (01) ==
PROVIDERS: Physician Assistant; Emergency Provider Emergency Medicine; PCP Family Medicine
DX: M47.812 Spondylosis without myelopathy or radiculopathy, cervical region (principal)
CPT/HCPCS: 36415; 72040; 80053; 81001; 85025; 99283

== ENCOUNTER 2025-09-28 19:37 | Emergency (ER) | payer MEDICARE, MEDICAID, SELFPAY ==
[2025-09-28 19:38] VITALS: BMI 28.9
[2025-09-28 20:04] VITALS: BP 117/75; PULSE 74; RESP 18; TEMP 36.6; O2SAT 98
--- NOTE | 2025-09-28 20:10 | XR_ITS ---
EXAMINATION: PA chest single view TECHNIQUE: Upright PA chest single view Date and time: September 28, 2025, 2041 hours, comparison August 28, 2024 INDICATIONS: Shortness of breath generalized weakness today. FINDINGS: Atelectasis versus mild pneumonia left lower lung zone Right lung clear Normal heart size Moderate osteopenia IMPRESSION: Atelectasis versus mild pneumonia left base, clinical correlation advised
[2025-09-28] MEDS: ACETAMINOPHEN 500 MG TABLET 1000 MG PO (20:35)
[2025-09-28 20:48] LABS: Basophils # (Auto) 0.0 Thou/mm3 (0.0-0.2); Basophils % (Auto) 0 % (0-2.5); Eosinophils # (Auto) 0.2 Thou/mm3 (0.0-0.5); Eosinophils % (Auto) 4 % (0-10); Hematocrit 33.6 % (36.0-46.0); Hemoglobin 10.7 g/dL (12.0-16.0); Immature Granulocytes Auto 0.02 Thou/mm3 (0.00-0.00); Lymphocytes # (Auto) 1.2 Thou/mm3 (1.0-4.8); Lymphocytes % (Auto) 19 % (10-50); Mean Corpuscular HGB Conc 31.8 g/dl (31.0-37.0); Mean Corpuscular Hemoglobin 26.8 pg (25.0-35.0); Mean Corpuscular Volume 84 fL (80-100); Monocytes # (Auto) 0.6 Thou/mm3 (0.0-0.8); Monocytes % (Auto) 9 % (0-12); Neutrophils # (Auto) 4.3 Thou/mm3 (1.8-7.7); Neutrophils % (Auto) 68 % (37-80); Nucleated Red Blood Cell # 0.00 Thou/mm3 (0.00-0.00); Nucleated Red Blood Cell % 0 /100 WBC (0); Platelet Count 163 Thou/mm3 (140-440); RDW Standard Deviation 39.4 fL (36.4-46.3); Red Blood Count 4.00 Miln/mm3 (4.00-5.20); White Blood Count 6.3 Thou/mm3 (3.6-11.0)
[2025-09-28 21:06] LABS: Alanine Aminotransferase 11 U/L (10-49); Albumin, Serum 4.5 gm/dL (3.4-4.8); Albumin/Globulin Ratio 1.4 (1.2-2.2); Alkaline Phosphatase 46 U/L (46-116); Anion Gap 10 (7-16); Aspartate Amino Transferase 21 U/L (0-34); BUN/Creatinine Ratio 19 Ratio (12-20); Bilirubin,Total 0.4 mg/dL (0.3-1.2); Blood Urea Nitrogen 25 mg/dL (9-23); Calcium 10.6 mg/dL (8.3-10.6); Calcium (Corrected) 10.6 mg/dL (8.5-10.1); Carbon Dioxide 26.8 mMol/L (20.0-31.0); Chloride 104 mMol/L (98-107); Creatinine (Component) 1.3 mg/dL (0.6-1.3); Estimated Creatinine Clearance 34.1 mL/min (>60); Globulin 3.2 gm/dL (2.3-3.5); Glucose 92 mg/dL (74-106); Osmolality,Calculated 285 (275-295); Potassium 4.3 mMol/L (3.4-5.1); Sodium 141 mMol/L (136-145); Total Protein 7.7 gm/dL (5.7-8.2); Troponin I < 0.020 ng/mL (0.0-0.045); eGFR 43 See Note
[2025-09-28 21:55] LABS: Collection Type, Urine Clean Catch
[2025-09-28 22:08] LABS: Bilirubin,Urine Negative (Negative); Blood,Urine Negative (Negative); Clarity,Urine Clear (Clear/Hazy); Color,Urine Lt-Yellow (Lt Yel-Yel); Glucose, Urine Negative (Negative); Ketones,Urine Negative (Negative); Leukocyte Esterase,Urine Positive (Negative); Nitrite,Urine Negative (Negative); PH,Urine 6.0 (5.0-7.0); Protein,Urine Negative (Neg - Trace); RBC,Urine 3 /hpf (0-3); Specific Gravity,Urine 1.009 (1.001-1.035); Squamous Epithelial Cell,Urine 2 /hpf (0-5); Urobilinogen,Urine Negative mg/dL (0.0-1.0); WBC,Urine 3 /hpf (0-5)
--- NOTE | 2025-09-28 22:26 | EDNOTE_ITS ---
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 Patient states she has been helping her who has been sick get in and out of bed and subsequent to that, states that she has had generalized bodyaches. Patient additionally states she has had intermittent cough of the past few days. Cough is been nonproductive. Patient denies any fever nausea or vomiting. Vital signs were stable at arrival. Related Data Home Medications ?Medication ?Instructions ?Recorded ?Confirmed Levothyroxine * (SYNTHROID *) 100 mcg PO QDAY #0 tabs 05/06/17 12/15/24 Losartan Potassium * (COZAAR *) 50 mg PO QDAY #0 tabs 05/06/17 12/15/24 ferrous sulfate 325 mg (65 mg 325 mg PO BIDWM #0 tabs 05/06/17 12/15/24 iron) tablet (Feosol) hydroxychloroquine 200 mg tablet 200 mg PO DAILY #0 ta bs 05/06/17 12/15/24 (Plaquenil) simvastatin 20 mg tablet (Zocor) 20 mg PO HS #0 tabs 0 05/06/17 12/15/24 mycophenolate mofetil 500 mg tablet 500 mg PO BID 02/1712/15/24 cholecalciferol (vitamin D3) 50 50 mcg PO DAILY 12/15/24 mcg (2,000 unit) capsule Previous Rx's ?Medication ?Instructions ?Recorded acetaminophen 500 mg tablet 500 mg PO Q6H PRN fever or pain 09/28/25 (Tylenol Extra Strength) #30 tabs doxycycline hyclate 100 mg capsule 100 mg PO BID #14 c aps 09/28/25 Allergies Allergy/AdvReac Type Severity Reaction Status Date / Time Sulfa (Sulfonamide Allergy Intermediate RASH, HIVES Verified 03/20/25 18:13 Antibiotics) Review of Systems Review of Systems Systems Reviewed: All systems reviewed, normal except as documented Constitutional Constitutional: Reports system reviewed and no additional complaints, except as documented, Reports as per HPI and Reports body ache(s) Past Medical History Past Medical History NEUROLOGIC: Negative Neurological Disorders or Seizures CARDIAC: Positive Cardiac Disorders (PERICARDIAL EFFUSION, PALPATATIONS), Angina, Hypercholesterolemia, Valvular Heart Disease, Hypertension and Varicose Veins; Negative Congestive Heart Failure RESPIRATORY: Positive Pneumonia; Negative Chronic Obstructive Pulmonary Disease (COPD) GASTROINTESTINAL: Positive Gastrointestinal Disorders and Hemorrhoids GENITOURINARY: Positive Genitourinary Disorders and Renal Disease MUSCULOSKELETAL: Positive Musculoskeletal Disorders, Arthritis and Osteoporosis ENT: Positive Deafness ([place]) ENDOCRINE: Positive Endocrine Disorders, Hypothyroidism and Systemic Lupus Erythematosus; Negative Diabetes Mellitus Type 1 or Diabetes Mellitus Type 2 HEMATOLOGIC: Positive Blood Disorders and Anemia OTHER HISTORY: Positive Autoimmune Disease, Shingles, Blood Transfusions, Anesthesia Reactions (DIFFCULTY WAKING UP), Measles and Mumps; Negative Blood Transfusion Reaction or Cancer Family History FAMILY HISTORY: Negative Family Cardiac Disorders Surgical History SURGICAL: Positive Hysterectomy Social History SMOKING STATUS: Never smoker ED Exam Narrative Physical exam: Patient appears to be mild to mildly ill at time of evaluation. Patient appeared to be weak. General Limitations: Present language barrier General appearance: Present alert and in no apparent distress Head Head exam: Present atraumatic Eye Eye exam: Present normal appearance, PERRL and EOMI ENT ENT exam: Present normal exam, normal oropharynx and mucous membranes moist Neck Neck exam: Present normal inspection, full ROM and trachea midline Chest Chest inspection: Present normal inspection and symmetric chest wall rise Respiratory Respiratory exam: Present other (Possible right middle lobe rhonchi appreciated on auscultation. No signs of respiratory distress. No accessory muscle use.) Cardiovascular Cardiovascular exam: Present regular rate, normal rhythm and normal heart sounds Abdominal Exam Abdominal exam: Present soft and normal bowel sounds Extremities Exam Extremities exam: Present normal inspection and full ROM Back Exam Back exam: Present normal inspection and full ROM Neurological Exam Neurological exam: Present alert, oriented X3 and CN II-XII intact Psychiatric Psychiatric exam: Present normal affect and normal mood Skin Skin exam: Present warm, dry, intact and normal color Course Quality Measures none Orders Category Date Time Status Bedside COVID-19 Antigen Test NOW Care 09/28/25 20:10 Active Bedside Influenza A&B Antigen Test NOW Care 09/28/25 20:10 Completed XR chest 1V portable Stat Exams 09/28/25 20:10 Completed CBC Stat Lab 09/28/25 20:25 Completed CMP [Comprehensive Metabolic Panel] Stat Lab 09/28/25 20:25 Completed Troponin I Stat Lab 09/28/25 20:25 Completed UA [Urinalysis] Stat Lab 09/28/25 21:41 Completed Acetaminophen Tab [Tylenol ES Tab] Med 09/28/25 20:10 Discontinued 1,000 mg PO X1 ONE As noted above Vital Signs Vital signs: Vital Signs Temperature 98 F 09/28/25 20:04 Pulse Rate 74 09/28/25 20:04 Respiratory Rate 18 09/28/25 20:04 Blood Pressure 117/75 09/28/25 20:04 Pulse Oximetry (%) 98 09/28/25 20:04 Oxygen Delivery Method Room Air 09/28/25 20:04 As noted above Extremity Problem Patient data External records reviewed:: [facility] previous records 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 Medications / Prescriptions Medications or Prescriptions considered but not ordered:: None Medication administrations:: Medication Administration History Discontinued Medications Acetaminophen (Acetaminophen 500 Mg Tablet) 1,000 mg PO X1 ONE Stop: 09/28/25 20:11 Last Admin: 09/28/25 20:35 Dose: 1,000 mg Documented By: JOANA As noted above Consultations Consultation(s) initiated? (list below): No Diagnosis Extremity Problem Differential Diagnosis: other (Bilateral respiratory illness, pneumonia, sepsis, electrolyte abnormality, renal disease) Most likely diagnosis given after review of the tests above:: Pneumonia Admission Indicated Admission indicated?: not indicated Explain why admission is indicated or not indicated:: Unwarranted at this time Admission Request Was there a request for admission?: No Disposition Plan Disposition Plan: Discharge Discharge Attestation Discharge Attestation: The patient and all family members were given an opportunity to ask questions and understood the discharge instructions. Discharge instructions specifically effects, indications for sooner follow up or return to the emergency department, and the expected course of current diagnosis. Patient condition: Stable Discharge Plan Plan Patient Disposition: HOME (Self Care) Prescriptions/Referrals Prescriptions/Med Rec: New doxycycline hyclate 100 mg capsule 100 mg PO BID Qty: 14 0RF acetaminophen [Tylenol Extra Strength] 500 mg tablet 500 mg PO Q6H PRN (Reason: fever or pain) Qty: 30 0RF No Action simvastatin [Zocor] 20 MG tablet 20 mg PO HS Qty: 0 ferrous sulfate [Feosol] 1 TAB tablet 325 mg PO BIDWM Qty: 0 hydroxychloroquine [Plaquenil] 200 MG tablet 200 mg PO DAILY Qty: 0 Levothyroxine * (SYNTHROID *) 100 mcg tablet 100 mcg PO QDAY Qty: 0 Losartan Potassium * (COZAAR *) 50 MG tablet 50 mg PO QDAY Qty: 0 mycophenolate mofetil 500 mg Tablet 500 mg PO BID cholecalciferol (vitamin D3) 50 mcg (2,000 unit) capsule 50 mcg PO DAILY Patient Comments: [facility] Referrals: No Primary/Family,Physician [Primary Care Provider] - In 1 week Problem List Clinical Impression: Pneumonia Patient/Caregiver Discharge Instructions Education Materials: Treating Pneumonia Additional Instructions: Advised patient utilize antibiotics as directed to completion as well as Tylenol as needed Print Language: [place] Stand Alone Forms: [employer]vis Award Info., Patient Portal Info Letter
[2025-09-29 01:15] VITALS: BP 121/84; PULSE 80; RESP 18; TEMP 36.8; O2SAT 96
[2025-09-29 03:03] VITALS: BP 121/68; PULSE 68; RESP 18; TEMP 36.6; O2SAT 98
== END 2025-09-29 03:05 | disposition home or self-care (01) ==
PROVIDERS: Physician Assistant; Emergency Provider Emergency Medicine
DX: J18.9 Pneumonia, unspecified organism (principal)
CPT/HCPCS: 36415; 71045; 80053; 81001; 84484; 85025; 87502; 87635; 99283; A9270